=== PATIENT | female | born 1930 | race Caucasian/White ===

== ENCOUNTER → 2021-04-03 | Outpatient (CLI) | payer MEDICARE, OTHER ==
--- NOTE | 2021-04-03 17:36 | Diagnostic Imaging Report ---
HISTORY: Pain in the right knee TECHNIQUE: 4 views of the right knee COMPARISON: None FINDINGS: No acute fracture or dislocation is seen in the right knee. Alignment appears normal. Joint spaces are preserved. There is a small joint effusion. IMPRESSION: 1. No acute osseous abnormality is seen in the right knee. 2. Small right knee joint effusion. Dictated by: Dictated on workstation # [id number]
--- NOTE | 2021-04-03 17:42 | Diagnostic Imaging Report ---
EXAMINATION: Right shoulder at 1:43 PM INDICATION: Shoulder pain 3 views were obtained. There are no prior studies available for comparison. There is no fracture, dislocation or acute bony abnormality evident. 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 In addition, the space between the undersurface of the acromion and the humeral head does seem narrowed and I suspect that there has been an injury to the rotator cuff. If further imaging is desired, then MRI would be recommended. The soft tissues are otherwise unremarkable. IMPRESSION: 1. There is no acute bony abnormality noted. 2. 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 Recommendations as above. Dictated by: Dictated on workstation # [id number]
== END ==
LOC: ORTHO 13:14
PROVIDERS: ATTEND Orthopaedic Surgery
DX: M19.011 Primary osteoarthritis, right shoulder (principal); M25.461 Effusion, right knee; M25.561 Pain in right knee
CPT/HCPCS: 73030; 73564; G0463; 99213